=== PATIENT | female | born 1945 | race Caucasian/White ===

== ENCOUNTER 2018-12-20 11:38 | Inpatient (IN) ==
[2018-12-20] MEDS ORDERED: NS 1,000 ML IV ONE ×2 (13:22→16:40)
[2018-12-20 13:36] LABS: BASO# 0.03 X1000 (0.0-0.2); BASO% 0.3 % (0.0-0.8); EOS% 4.5 % (0.0-10.0); HEMATOCRIT 39.1 % (37.0-47.0); HEMOGLOBIN 12.5 g/dL (12.0-16.0); IMM GRAN# 0.02 X1000 (0.0-0.04); IMM GRAN% 0.2 % (0.0-0.5); LYMPH% 9.1 % (20.5-51.1); MCH 30.4 PG (27-31); MCV 95.1 FL (81-99); MONO# 0.64 X1000 (0.11-0.59); MONO% 5.8 % (1.7-9.3); NEUT# 8.82 X1000 (1.4-6.5); NEUT% 80.1 % (42.2-75.2); PLT 119 X1000 (130-400); RBC 4.11 XMIL (4.2-5.4); RDW 12.3 % (11.5-14.5); WBC 11.01 X1000 (4.8-10.8)
--- NOTE | 2018-12-20 13:39 | Diag Imaging Result Doc PS360 ---
EXAM: CHEST-2 VIEWS 12/20/2018 HISTORY: fever TECHNIQUE: PA and lateral chest COMMENT: There are no previous studies available for comparison. There is some minimal atelectatic change in the left lateral costophrenic sulcus. There is a granuloma in the left upper lobe. The heart size and pulmonary vascularity are within normal limits. IMPRESSION: Minimal left lower lobe atelectasis. Electronically signed by Willie Quick 12/20/2018 1:36 PM
[2018-12-20 13:44] LABS: INR 1.1; PROTIME 14.4 Seconds (11.0-16.0)
[2018-12-20 13:45] LABS: PTT 29.7 Seconds (22.3-41.8)
--- NOTE | 2018-12-20 13:57 | EKG Report ---
Test Performed on : 12/20/2018 12:17:53 PM Test Reason : UTI Blood Pressure : / mmHG Vent. Rate : 068 BPM Atrial Rate : 068 BPM P-R Int : 150 ms QRS Dur : 062 ms QT Int : 382 ms P-R-T Axes : 027 001 038 degrees QTc Int : 406 ms Normal sinus rhythm. Normal ECG No previous ECGs available Unconfirmed Result
[2018-12-20 14:05] LABS: ALB/GLOB RATIO 1.6; ALBUMIN 4.1 g/dL (3.5-5.0); CREATININE 1.7 mg/dL (0.5-0.9); POTASSIUM 3.8 mmol/L (3.5-5.1); TOTAL BILIRUBIN 0.48 mg/dL (0.20-1.00); TOTAL PROTEIN 6.7 g/dL (6.3-8.3)
[2018-12-20 14:48] LABS: URINE SOURCE CLEAN CATCH
[2018-12-20 14:49] LABS: BILIRUBIN URINE NEGATIVE (NEGATIVE); BLOOD URINE NEGATIVE (NEGATIVE); COLOR YELLOW; GLUCOSE URINE NEGATIVE (NEGATIVE); KETONE URINE NEGATIVE (NEGATIVE); LEUKOCYTES URINE NEGATIVE (NEGATIVE); NITRITE URINE NEGATIVE (NEGATIVE); PROTEIN URINE 30 mg/dL (NEGATIVE); SP GRAVITY URINE 1.023; TURBIDITY URINE CLEAR (CLEAR); UROBILINOGEN URINE NORMAL (NORMAL)
[2018-12-20 14:51] LABS: UR EPITHELIAL CELLS <10 /HPF (<10); URINE BACTERIA NEGATIVE /HPF; URINE RBC <10 /HPF (<10); URINE WBC <10 /HPF (<10)
[2018-12-20] MEDS ORDERED: ROCEPHIN IV ONE (16:39)
[2018-12-20] MEDS ORDERED: NS 50 ML IV ONE (17:29)
[2018-12-20] MEDS ORDERED: NS 50 ML ONE (17:31)
[2018-12-20] MEDS ORDERED: TYLENOL PO PRN (18:08)
[2018-12-20] MEDS ORDERED: LOVENOX SUBQ SCH (18:08)
[2018-12-20] MEDS ORDERED: ZOFRAN IV PRN (18:08)
[2018-12-20] MEDS: DOXYCYCLINE 100 MG in NS 250 ML IV SCH (19:11)
[2018-12-20] MEDS: ALBUTEROL NEB INH SCH ×2 (19:59→23:24)
[2018-12-20] MEDS: ATROVENT NEB INH SCH ×2 (20:00→23:24)
[2018-12-20] MEDS: PEPCID PO SCH (20:42)
[2018-12-20] MEDS ORDERED: ASPIRIN EC PO SCH (21:00)
[2018-12-20] MEDS ORDERED: CRESTOR PO SCH (21:00)
[2018-12-20] MEDS: MUCINEX DM PO SCH (22:15)
--- NOTE | 2018-12-20 23:01 | HISTORY AND PHYSICAL ---
PRIMARY CARE PHYSICIAN: Josh Concepcion MD CHIEF COMPLAINT: Profound weakness, cough, congestion, sore throat. HISTORY OF PRESENT ILLNESS: A 73-year-old white female with a complicated past medical history, presents for evaluation of above-mentioned symptoms. Pertinent history of present illness began on December 07. At that time the patient developed a sinus headache. The patient attempted over- the-counter medications, with modest improvement. Soon thereafter, she developed a sore throat, dry cough and congestion. She denied fevers, chills and sick contacts. In addition to these symptoms, she also was noted to have urinary frequency, dysuria and hesitancy. The patient was seen in my office on December 11, 2018. At that time the patient was noted to have a normal white blood cell count of 8.6. Urinalysis, however, suggested the possibility of a urinary tract infection. Because of her upper respiratory and urinary symptoms, the patient was placed on levofloxacin therapy. The patient states initially she did quite well. Her symptoms essentially resolved. Over the weekend, unfortunately, the patient developed a recurrence. The patient states she developed a sore throat, a cough intermittently productive of a purulent sputum, congestion and fevers. She denied shortness of breath, wheezing or new sick contacts. The patient attempted to treat this with [id number] medications. She completed her levofloxacin yesterday. This morning the patient awoke with a temperature of 101 degrees. For this reason, the patient's contacted my office. As I was away from the office, the patient was sent to a walk-in clinic. While there, the patient's systolic blood pressure was noted to be in the 70s. She was sent directly to the emergency department for further evaluation and management. Upon arrival, full evaluation was pursued. Initial vital signs included a temperature of 99 degrees and a blood pressure of 88/52. Chest x-ray suggested left lower lobe atelectasis. White blood cell count was noted to be elevated at 11.01. Renal insufficiency was stable with a creatinine of 1.7. Because of the patient's clinical condition, she was diagnosed with pneumonia with associated hypotension. The patient will be admitted to the hospital for full evaluation and management of this condition. PAST MEDICAL HISTORY: 1. Abnormal electrocardiogram with possible left ventricular hypertrophy and poor R-wave progression. 2. Multiple actinic keratoses. 3. Anxiety/depression. 4. Chronic kidney disease, with baseline creatinine between 1.4 and 1.7. 5. History of transaminitis of undetermined significance. 6. Reflux disease. 7. Hypertension. 8. Hyperlipidemia. 9. History of an abnormal left mammogram in June 2007, with negative biopsy. 10. Impaired fasting glucose. 11. Irritable bowel syndrome. 12. Presumed ischemic heart disease secondary to elevated calcium score. 13. Mitral valve regurgitation. 14. Obstructive sleep apnea. 15. Osteoarthritis. 16. Raynaud disease. 17. History of renal artery stenosis, status post angioplasty of the left renal artery. 18. History of left long trigger finger, status post injection with improvement. CURRENT MEDICATIONS: 1. Aspirin 81 mg daily. 2. Carvedilol 12.5 mg twice daily. 3. Coenzyme Q10, 100 mg daily. 4. Crestor 40 mg at bedtime. 5. Cyclobenzaprine 10 mg 1/2 to 1 tablet 3 times daily as needed. 6. Famotidine 40 mg twice daily. 7. Lisinopril 5 mg 1/2 tablet daily. 8. Metamucil daily. 9. Sertraline 100 mg daily. ALLERGIES: The patient states she is allergic to shellfish, which causes nausea, vomiting and diarrhea, and tetanus. SOCIAL HISTORY: The patient denies tobacco or illicit drug use. She has approximately 1 drink every 3 months. 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 She enjoys reading and grandchildren. She does not exercise routinely. FAMILY HISTORY: The patient's father passed at age 75 secondary to complications of hypertension, hyperlipidemia, diabetes and coronary artery disease. The patient's mother passed at age 72 secondary to complications of emphysema, hypertension and hyperlipidemia. REVIEW OF SYSTEMS: A 12-point review of systems was performed. Pertinent positives and negatives are noted in the history of present illness. PHYSICAL EXAMINATION: VITAL SIGNS: Temperature 99 degrees, heart rate 67, respirations 14, blood pressure is 92/45. GENERAL: Ill appearing, no acute distress. HEENT: Normocephalic, atraumatic. Pupils equal, round, react to light. Extraocular muscles intact. Sclerae are anicteric. [place] conjunctivae. Oropharynx and nasopharynx are clear, without exudate. NECK: Supple. No lymphadenopathy. No thyromegaly. No bruits auscultated. CARDIOVASCULAR: Regular rate and rhythm. No significant murmurs, rubs or gallops. PULMONARY: Minimal decreased breath sounds at the left base. Adequate air movement. ABDOMEN: Soft, nontender, nondistended. Positive bowel sounds. EXTREMITIES: Moves all extremities well. No significant clubbing, cyanosis or edema. NEUROLOGIC: Cranial nerves 2-12 are grossly intact. Motor and sensory grossly intact. PSYCHOLOGICAL: Examination is appropriate. LABORATORY DATA: White blood cell count 11.01, hemoglobin 12.5, hematocrit 39.1, platelet count 119,000. PT 14.4, INR 1.10, PTT is 29.7. Sodium 138, potassium 3.8, chloride 101, bicarbonate 23, BUN 19, creatinine 1.7, glucose 164, calcium 9.0, magnesium 1.5, phosphorus 2.6, total bilirubin 0.46, total protein 6.7, albumin 4.1, alkaline phosphatase 99, AST 27, ALT 19. CK 53. Troponin less than 0.010. Urinalysis returned with positive protein. ASSESSMENT AND PLAN: A 73-year-old white female with past medical history as noted presents for evaluation of profound weakness, cough and congestion. The patient has failed outpatient management with levofloxacin therapy. Chest x-ray suggests atelectasis; however, clinically the patient likely has underlying pneumonia. The patient will be admitted to the hospital for full evaluation and management of this condition. 1. Admit to General Medicine. 2. Community acquired pneumonia: As above, the patient initially had improvement with levofloxacin therapy. Unfortunately, she has developed a considerable relapse. Blood cultures have been drawn. We will check sputum cultures as well. We will start the patient on Rocephin and doxycycline therapy. We will start bronchodilators every 4 hours while awake. We will encourage incentive spirometry and aspiration precautions. Should the patient develop progression of her symptoms, we will have a low threshold for CT scan evaluation. 3. Hypotension: This likely is a consequence of her acute illness as well as taking her antihypertensive agents this morning. We will hold lisinopril and Coreg therapy. We will start the patient on aggressive, but cautious intravenous hydration. We will follow this as well. 4. Profound weakness: Once again, this likely is a consequence of her underlying pneumonia as well as hypotension. We will treat each of these as above. 5. Chronic kidney disease: The patient's creatinine is at the upper limits of normal for her baseline of 1.7. We will hydrate as above. 6. Depression/anxiety: We will continue the patient on sertraline therapy. 7. Reflux disease: We will continue the patient on famotidine therapy. We will encourage aspiration precautions. 8. Hyperlipidemia: We will continue the patient on Crestor therapy. 9. Impaired fasting glucose: The patient's nonfasting glucose on examination today is elevated. We will monitor this while hospitalized. 10. Fluid, electrolytes, nutrition: We will monitor electrolytes. Normal saline at 75 mL/h. Regular diet. 11. Prophylaxis: The patient will be placed on subcutaneous Lovenox. cc: Josh Concepcion MD
[2018-12-21] MEDS: ATROVENT NEB INH SCH ×5 (03:35→19:08)
[2018-12-21] MEDS: ALBUTEROL NEB INH SCH ×5 (03:35→19:07)
[2018-12-21] MEDS: DOXYCYCLINE 100 MG in NS 250 ML IV SCH (04:48)
[2018-12-21] MEDS: NS 1,000 ML IV SCH ×2 (04:48→08:42)
[2018-12-21 08:30] LABS: BASO# 0.02 X1000 (0.0-0.2); BASO% 0.2 % (0.0-0.8); EOS# 0.61 X1000 (0.0-0.7); EOS% 7.5 % (0.0-10.0); HEMATOCRIT 38.1 % (37.0-47.0); HEMOGLOBIN 12.1 g/dL (12.0-16.0); IMM GRAN# 0.03 X1000 (0.0-0.04); IMM GRAN% 0.4 % (0.0-0.5); LYMPH# 1.37 X1000 (1.2-3.4); LYMPH% 16.9 % (20.5-51.1); MCH 30.3 PG (27-31); MCHC 31.8 g/dL (33-37); MCV 95.3 FL (81-99); MONO# 0.57 X1000 (0.11-0.59); MPV 10.9 FL (7.4-10.4); PLT 111 X1000 (130-400); RDW 12.4 % (11.5-14.5)
[2018-12-21] MEDS: PEPCID PO SCH (08:41)
[2018-12-21] MEDS: MUCINEX DM PO SCH (08:41)
[2018-12-21 08:52] LABS: ALB/GLOB RATIO 1.2; ALBUMIN 3.6 g/dL (3.5-5.0); CALCIUM 8.5 mg/dL (8.8-10.2); CREATININE 1.4 mg/dL (0.5-0.9); POTASSIUM 3.8 mmol/L (3.5-5.1); TOTAL BILIRUBIN 0.43 mg/dL (0.20-1.00); TOTAL PROTEIN 6.5 g/dL (6.3-8.3)
[2018-12-21] MEDS ORDERED: ZOLOFT PO SCH (09:00)
[2018-12-21 14:24] VITALS: BP 136/55
[2018-12-21] MEDS ORDERED: ROCEPHIN 1 GM in NS 50 ML IV SCH (17:30)
[2018-12-21] MEDS ORDERED: OMNICEF PO ONE (18:43)
[2018-12-21] MEDS ORDERED: DOXYCYCLINE PO ONE (18:44)
--- NOTE | 2018-12-22 16:23 | DISCHARGE SUMMARY ---
ADMISSION DATE: 12/20/2018 DISCHARGE DATE: 12/21/2018 ADMISSION DIAGNOSES: 1. Profound weakness. 2. Cough. 3. Congestion. 4. Sore throat. DISCHARGE DIAGNOSES: 1. Community-acquired pneumonia, improving. 2. Hypotension, improving. 3. Profound weakness, improving. 4. Chronic kidney disease, present on arrival. 5. Depression/anxiety, present on arrival. 6. Reflux disease, present on arrival. 7. Hyperlipidemia, present on arrival. 8. Impaired fasting glucose, present on arrival. CONSULTATION: None. PROCEDURES: A chest x-ray was performed on 12/20/2018 which revealed minimal left lower lobe atelectasis. HISTORY AND PHYSICAL EXAMINATION: See admit note. PHYSICAL EXAMINATION PRIOR TO DISCHARGE: Vitals: Temperature 98.7 degrees, heart rate 80, respirations 16. Blood pressure is 136/55. General: Well nourished, well developed, no acute distress. Cardiovascular: Regular rate and rhythm. No significant murmurs, rubs, or gallops. Pulmonary: Minimal crackles at bilateral bases. Adequate air movement. Abdomen: Soft, nontender, nondistended. Positive bowel sounds. Extremities: Moves all extremities well. No significant clubbing, cyanosis, or edema. Dermatologic: Evaluation reveals no evidence of rash. LABORATORY DATA: Prior to discharge: White blood cell count 8.10, hemoglobin 12.1, hematocrit 38.1; platelet count is 111,000. Sodium 142, potassium 3.8, chloride 107, bicarb 23, BUN 16, creatinine 1.4, glucose 90. Calcium 8.5. Total bilirubin 0.43, total protein 6.5, albumin 3.6, alkaline phosphatase 87, AST 24, ALT 15. HOSPITAL COURSE: Patient was admitted as per history and physical examination. Hospital course per condition is as follows. 1. Community-acquired pneumonia-upon admission, patient's symptoms were most consistent with an underlying community-acquired pneumonia, outpatient failure. Chest x-ray suggested atelectasis; however, with fever, cough, congestion, and elevated white blood cell count, the patient was treated for a probable pneumonia. Patient was started on Rocephin and doxycycline therapy. Bronchodilators and Mucinex DM were initiated. While hospitalized, patient's overall condition improved rapidly. At time of discharge, patient white blood cell count had normalized. The patient will be discharged home with 6 additional days of cefdinir and doxycycline therapy. We will provide a prescription for ProAir HFA to be used as needed. We will follow this closely. We will need to follow up sputum cultures as an outpatient. 2. Hypotension-this likely was a consequence of her acute illness, dehydration, and consistent antihypertensive use. The patient's lisinopril and Coreg were held while hospitalized. Aggressive IV hydration was pursued. With each of these measures, blood pressure normalized. Patient will be discharged home, resuming Coreg in the morning. She is to resume lisinopril only for systolic blood pressure consistently above 130. 3. Profound weakness-this likely was a consequence of both community-acquired pneumonia and hypotension. With treatment of each of these, her symptoms improved, although not back to baseline. I suspect with time and further treatment, this will resolve. 4. Chronic kidney disease-patient's creatinine upon admission was 1.7. With aggressive hydration, creatinine improved to 1.4 today. This will be followed as an outpatient as well. 5. Depression/anxiety-patient was continued on sertraline therapy while hospitalized. 6. Reflux disease-symptoms remained adequately controlled with famotidine therapy. 7. Hyperlipidemia-patient was maintained on Crestor therapy while hospitalized. 8. Impaired fasting glucose-patient is currently treated nonmedically. While hospitalized, patient was treated with dietary modification. We will follow this as an outpatient as well. DISCHARGE CONDITION: Good. DISPOSITION: Discharge to home. MEDICATIONS: 1. Tylenol 650 mg every 6 hours as needed. 2. Doxycycline 100 mg twice daily. 3. ProAir HFA 1 to 2 puffs 3 times daily as needed. 4. Mucinex DM twice daily. 5. Cefdinir 300 mg twice daily for 6 days. 6. Carvedilol 12.5 mg twice daily. 7. Famotidine 40 mg twice daily. 8. Rosuvastatin 40 mg at bedtime. 9. Sertraline 100 mg daily. 10. Aspirin 81 mg at bedtime. 11. Patient has been instructed to resume lisinopril 2.5 mg daily only for systolic blood pressure consistently above 130. FOLLOW-UP: Patient is to follow up with me in approximately 1 week. cc: Josh Concepcion MD
== END 2018-12-21 21:00 | disposition home or self-care (01) | DRG 195 ==
LOC: ED 11:38 → EDIPHOLD 17:39 → 3N 18:51
PROVIDERS: ADMIT Internal Medicine; ATTEND Internal Medicine